=== PATIENT | male | born 1965 | race Caucasian/White ===

== ENCOUNTER 2016-07-28 05:48 | Inpatient (IN) | payer BC, OTHER ==
[2016-07-14 10:09] LABS: % IMMATURE GRANULYOCYTES 0.3 % (0.0-1.1); ABSOLUTE IMMATURE GRANULOCYTES 0.02 10^3/uL (0.00-0.10); ADD DIFF? NO; ADD MORPH? NO; ADD SCAN? NO; ATYPICAL LYMPHOCYTE FLAG 20 (0-99); FRAGMENT RBC FLAG 0 (0-99); HEMATOCRIT 45.5 % (40.0-51.0); HEMOGLOBIN 15.5 g/dL (13.7-17.5); LEFT SHIFT FLG 0 (0-99); LIPEMIA HEMOLYSIS FLAG 90 (0-99); MEAN CELL HEMOGLOBIN 32.6 pg (27.9-34.1); MEAN CELL HEMOGLOBIN CONCENTR. 34.1 g/dL (32.4-36.7); MEAN CELL VOLUME 95.6 fL (81.5-99.8); MEAN PLATELET VOLUME 10.1 fL (8.7-11.7); PLATELET CLUMPS FLAG 0 (0-99); PLATELET COUNT 208 10^3/uL (150-400); RED BLOOD CELL COUNT 4.76 10^6/uL (4.40-6.38)
--- NOTE | 2016-07-22 11:15 | GHP ---
[f rep st] PREOP HISTORY AND PHYSICAL DATE OF ADMISSION: 07/28/2016 PROBLEM: Left hip severe degenerative arthritis. HISTORY OF PRESENT ILLNESS: The patient is a 51-year-old male who will be admitted for a left hip re surfacing arthroplasty with Dr. Block at the [facility] on July 28, 2016. The p atalma first noticed pain in his left hip 2-3 years ago. He has had progressive pain over the past f ew years and has gotten progressively worse in the past few months. He does have daily pain, as well as nighttime pain. He is able to walk, however, skiing and other higher level activities have becom e more and more painful and limiting. He will occasionally use Aleve. He does have difficulty putti ng on shoes and socks on his left side. No previous left hip surgery or physical therapy or cortison e injections. He has seen other orthopedic surgeons, who have recommended some sort of surgical inte rvention and he has chosen hip resurfacing. PAST MEDICAL HISTORY: Noncontributory. No history of DVTs, PEs, heart attack, or MRSA infections. Migraines. CURRENT MEDICATIONS: None. ALLERGIES: He has a shellfish allergy which causes anaphylaxis. SOCIAL HISTORY: No history of tobacco use. Occasional alcohol use. Moderate caffeine intake. His activities include mountain biking, wakeboarding, hiking, and skiing. Occupation: Self-employed. FAMILY HISTORY: Pertinent for cancer, coronary artery disease, and hypertension. PHYSICAL EXAMINATION: GENERAL: He is a healthy-appearing 51-year-old male. VITAL SIGNS: Height 5 feet 9 inches tall. Weight 153 pounds. BMI 22.6. HEENT: Head is normocephalic, atraumatic. Eyes are PERRLA. Conjunctivae and sclerae are clear. Mouth: He has good oral hygiene without any loose teeth. LUNGS: Clear. HEART: Regular rate and rhythm without murmurs, gallops, or rubs. EXTREMITI ES: Pertinent findings are limited to the patient's left hip. He has full hip extension, 100 degree s of flexion with a 20 degree external rotation contracture, 0 degrees of internal rotation, and 30 d egrees of abduction. DIAGNOSTIC IMAGING: Recent x-rays taken of the patient's left hip shows severe degenerative arthriti s of the left hip with yeqj-jo-ovvs findings. He has peripheral osteophyte formation as well as incr eased subchondral sclerosis. His right hip has vfvz-di-mevfcikh cartilage space narrowing as well. IMPRESSION: On admission: 1. Left hip advanced degenerative arthritis. 2. History of migraines. PLAN: The plan will be for the patient to undergo a left hip resurfacing arthroplasty with Dr. Lucrecia parrish at the [facility] on July 28, 2016. The surgery has been described to the tenisha ent, including the risks, benefits, and expectations. He understands the risk of infection, sciatic nerve injury, hip dislocation, or need for future revision surgery. All of his questions have been a nswered and he consents to surgery here in the office today. /[id number]/MODL
[~2016-07-28 05:48] MED LIST: LIDOCAINE 1% 5 ML SDV ONE
[2016-07-28] MEDS ORDERED: DEXAMETHASONE 4 MG/ML VIAL IVP ONE (06:00)
[2016-07-28] MEDS ORDERED: CHLORHEXIDINE GLUC HIBICLENS 118 ML BTL TP ONE (06:00)
[2016-07-28] MEDS ORDERED: ROPI/epiNEPH/KETOROLAC JOINT COCKTAIL IU ONE (06:00)
[2016-07-28] MEDS ORDERED: TRANEXAMIC ACID 1,400 MG in NS 100 ML IV ONE (06:00)
[2016-07-28] MEDS ORDERED: FAMOTIDINE 20 MG TAB PO ONE (06:00)
[2016-07-28] MEDS ORDERED: POVIDONE-IODINE 20 ML in SODIUM CL IRRIG SOLUTION 500 ML IRR ONE (06:00)
[2016-07-28] MEDS ORDERED: ACETAMINOPHEN 325 MG TAB PO ONE (06:00)
[2016-07-28] MEDS ORDERED: CEFAZOLIN 2 GM/DEXTR 100 ML IV ONE (06:00)
[2016-07-28] MEDS ORDERED: LIDOCAINE 1% 5 ML SDV ID PRN (06:10)
[2016-07-28] MEDS ORDERED: LR 1,000 ML IV ONE (06:10)
[2016-07-28] MEDS ORDERED: SKIN ADHESIVE (DERMABOND) 1 EACH TP ONE (06:36)
[2016-07-28] MEDS ORDERED: ceFAZolin 1 GM/5 ML SYR ONE (06:36)
[2016-07-28] MEDS ORDERED: MIDAZOLAM 2 MG/2 ML VIAL ONE (06:58)
[2016-07-28] MEDS ORDERED: fentaNYL 100 MCG/2 ML INJ ONE (07:13)
[2016-07-28] MEDS ORDERED: PROPOFOL/EMULSION 500 MG/50 ML BOTTLE IV ONE ×2 (07:14→08:39)
[2016-07-28] MEDS ORDERED: LIDOCAINE 2% 5 ML SDV ONE ×2 (07:25)
[2016-07-28] MEDS ORDERED: PHENYLEPHRINE HCL 100 MCG/ML SYR ONE (07:42)
--- NOTE | 2016-07-28 09:06 | POSTOPPROG ---
Post Op Note Date of Operation: 07/28/16 Surgeon: Robert Block Radio Dispatcher: Adali/Sony Anesthesiologist: Selin Anesthesia: IV Sedation, Spinal Post-op Diagnosis: left hip arthritis Procedure: L BHR Inf/Abcess present in the surg proc area at time of surgery?: No EBL: [id number]
[2016-07-28] MEDS ORDERED: DIPHENOXYLATE/ATROPINE LOMOTIL 1 TAB PO PRN (09:18)
[2016-07-28] MEDS ORDERED: ONDANSETRON 4 MG/2 ML VIAL IVP PRN (09:18)
[2016-07-28] MEDS ORDERED: PHARMACY PAIN CONSULT 1 EA MISC PRN (09:18)
[2016-07-28] MEDS ORDERED: TEMAZEPAM 15 MG CAP PO PRN (09:18)
[2016-07-28] MEDS ORDERED: METOCLOPRAMIDE 10 MG/2 ML VIAL IVP PRN (09:18)
[2016-07-28] MEDS ORDERED: CYCLOBENZAPRINE 10 MG TAB PO PRN (09:18)
[2016-07-28] MEDS ORDERED: KETOROLAC 30 MG/1 ML SDV IVP PRN (09:18)
[2016-07-28] MEDS ORDERED: NS 500 ML IV PRN (09:18)
[2016-07-28] MEDS ORDERED: traMADol 50 MG TAB PO PRN (09:18)
[2016-07-28] MEDS ORDERED: MAGNESIUM HYDROXIDE 30 ML UDCUP PO PRN (09:18)
[2016-07-28] MEDS ORDERED: POLYETHYLENE GLYCOL 3350 17 GM PKT PO PRN (09:18)
[2016-07-28] MEDS ORDERED: LACTULOSE 20 GM/30 ML UDCUP PO PRN (09:18)
[2016-07-28] MEDS ORDERED: PROMETHAZINE HCL 25 MG SUPPR PR PRN (09:18)
[2016-07-28] MEDS ORDERED: ONDANSETRON DISINTEGRATING 4 MG TAB PO PRN (09:18)
[2016-07-28] MEDS ORDERED: PROMETHAZINE HCL 25 MG/ML INJ IVP PRN (09:18)
[2016-07-28] MEDS ORDERED: diphenhydrAMINE 25 MG CAP PO PRN (09:18)
[2016-07-28] MEDS ORDERED: BISACODYL 10 MG SUPP PR PRN (09:18)
[2016-07-28] MEDS ORDERED: LR 1,000 ML IV SCH (09:30)
--- NOTE | 2016-07-28 12:13 | GOP ---
[f rep st] OPERATIVE REPORT DATE OF OPERATION: 07/28/2016 SURGEON: Robert Block MD ACCOUNTING ADVISORY SERVICES MANAGER: Roosevelt Bro and Vinod Cardoza. ANESTHESIA: A combination of Marcaine, spinal and IV sedation. ANESTHESIOLOGIST: Dr. Shad Smallwood. PREOPERATIVE DIAGNOSIS: Left hip severe degenerative arthritis. POSTOPERATIVE DIAGNOSIS: Left hip severe degenerative arthritis. PROCEDURE PERFORMED: Left hip Janet hip resurfacing arthroplasty. FINDINGS: DESCRIPTION OF PROCEDURE: The patient was given 2 g of preoperative IV Ancef within 60 minutes of s urgery. He also received IV tranexamic acid at a dose of 20 mg/kg. He was placed on the operating room table and given spinal anesthesia with Marcaine by Dr. Smallwood. He was then placed supine and given IV sedation. A Broderick catheter was not used. He wore a compressive stocking and SCD on th e nonoperative leg. He was rolled to the right lateral decubitus position. An axillary roll was us ed and all pressure points were carefully padded. The position was secured with the pegboard table attachment. I was careful to lock his pelvis in a rigid vertical position. His perineum was isolat ed with plastic adhesive drapes. His left hip and left lower extremity were prepped with ChloraPrep . They were draped free using sterile sheets, stockinette, and Ioban plastic adhesive drape. The [employer] time-out was performed to verify the correct patient identity and the correct surgical side. The [place] time-out was also performed. I made a 6-inch straight oblique posterolateral hip skin incision. Subcutaneous tissues were sharpl y divided and hemostasis was obtained using electrocautery. The fascia gloria was identified and spli t along the axis of its fibers. I curved posteriorly and proximally, and split the fascia of the gl uteus mark and bluntly split the muscle fibers in line with their orientation. His sciatic nerve was identified and protected throughout the procedure. The Charnley self-retaining retractor was i nserted. The external rotators and the posterior hip capsule were divided as separate layers at the base of the femoral neck, tagged and reflected posteriorly. The gluteus mark tendon was divided and tagged in order to improve exposure and release tension on the sciatic nerve. The hip was disl ocated posteriorly. I used a sizing gauge to check the diameter of the neck and concluded that 50 m m was the proper head size. I performed a circumferential capsulotomy. I was able to retract the f emoral head anteriorly and superiorly and hold it out of place with appropriate retractors. The rem nant of his damaged labrum was completely excised. The acetabulum was reamed sequentially up to 56 mm. I selected the Vilas monoblock porous-coated acetabular component with an outside diameter of 56 mm. This was firmly impacted and was a very tight fit. I was careful to determine proper in clination and anteversion. I used the transverse acetabular ligament and other acetabular bony land kohler to help me properly orient the cup. Posterior inferior osteophytes were removed with an osteo tome and rongeur. I was careful to leave a good lip of bone and capsule extending beyond the anteri or-inferior lip of the metal cup. I then returned to preparation of the femoral head. Using appropriate jigs and guides, I inserted a guide pin into the femoral head and neck. I was careful to position in such a way that there would be no notching of the neck. The patient had significant posterior translation of his femoral head. I positioned the guidewire so that I was centering the femoral head component on the femoral neck. This translated the head anteriorly and reestablished a normal head neck offset. He had some soft anterior neck osteophytes which were removed with a rongeur. I used a sterile metal goniometer to check the neck shaft angle. I reamed over the guide pin and inserted the reaming guide. I then use d the cylindrical reamer down to the head and neck junction. This was followed by the flat reamer a nd the chamfer reamer. The head was sized for 50 mm. There was no impingement or damage to the nec k. I drilled a small hole in the lesser trochanter and inserted a suction cannula to create negativ e pressure in the medullary canal. Small holes were drilled on the flattened chamfer surfaces of th e prepared head for cement anchors. The head was thoroughly cleaned with the pulsating lavage and c arefully dried. I used a CarboJet device to blow dry the cancellous surfaces. A single batch of Si mplex cement with tobramycin was mixed. At about 50 seconds, I poured the liquid cement into the ad component, inserted it onto the femoral head and impacted it into place. Excess cement was remov ed before it hardened. The acetabulum was irrigated, cleaned, and inspected, and the hip was reduce d. Stability and range of motion were checked. I placed my finger along the anterior aspect of the acetabular component and flexed the hip to 110 degrees. There was no anterior impingement. The hook ction cannula and lesser trochanter were removed. The wound was thoroughly irrigated with a dilute Betadine solution. 40 mL of the joint anesthetic cocktail were injected into the capsule, the deep musculature and the subcutaneous tissues along the skin edges. His sciatic nerve was reinspected and looked unharmed. The external rotators and the posterior hip capsule were repaired in separate layers with #2 FiberWire sutures through drill holes in the greate r trochanter. This provided a strong posterior capsular and external rotator repair. The gluteus m aximus tendon was repaired with 2 interrupted [id number]-gw-dvlby #2 FiberWire sutures. The fascia gloria was repaired 1st with 2 interrupted [id number]-do-[id number] #2 FiberWire sutures, followed by a running #2 barbed Ethicon fat affix PDO suture. The subcutaneous tissues were closed with a running 0 barbed E thicon Stratafix Monoderm suture. The skin was closed with a running 3-0 barbed Ethicon Stratafix M onoderm subcuticular suture. The skin edges were reapproximated and sealed with Dermabond glue. Th e wound was covered with a strip of Telfa, and everything was held in place with a piece of clear pl astic Tegaderm. The estimated blood loss was about 400 mL. I used a [employer] Janet hip resurfacing system. The acetabular component was 56 mm in diameter and press-fit. The femoral head was 50 mm and cemented. He was awakened from anesthesia a nd rolled to the supine position on his [place] [employer]. A long-leg compressive stocking and SCD we re applied to the operative leg. The patient wore a stocking and an SCD on the opposite leg during the procedure. An abduction pillow was placed under his knees. He was taken to PACU in satisfactor y condition. There were no recognized intraoperative complications. The sponge and needle count were correct on 2 occasions. Roosevelt Bro and Vinod Cardoza acted as surgical assistants. Their assistance was a medical casandra quezada. /[id number]/MODL
[2016-07-28] MEDS: TRANEXAMIC ACID 650 MG TAB PO SCH ×3 (12:41→21:04)
[2016-07-28] MEDS: ACETAMINOPHEN 325 MG TAB PO SCH ×3 (12:42→22:48)
[2016-07-28] MEDS: ceFAZolin 2 GM in D5W 100 ML IV SCH ×2 (13:54→21:04)
[2016-07-28] MEDS ORDERED: ceFAZolin 2 GM/DEXTROSE 100 ML IV SCH (14:00)
[2016-07-28] MEDS: oxyCODONE IR 5 MG TAB PO PRN ×2 (17:46→22:47)
[2016-07-28] MEDS: FAMOTIDINE 20 MG TAB PO SCH (21:05)
[2016-07-28] MEDS: SENNOSIDES/DOCUSATE SODIUM TAB PO SCH (21:05)
[2016-07-28] MEDS: ASPIRIN 325 MG TAB PO SCH (21:11)
[2016-07-28 23:55] VITALS: RESP 16
[2016-07-29] MEDS: ACETAMINOPHEN 325 MG TAB PO SCH (05:04)
[2016-07-29] MEDS: oxyCODONE IR 5 MG TAB PO PRN (05:06)
[2016-07-29 05:46] LABS: HEMOGLOBIN 12.8 g/dL (13.7-17.5)
--- NOTE | 2016-07-29 07:21 | SOAPPROG ---
SOAP Progress Note Assessment/Plan: Assessment: Afebrile. Mild pain. Up and walking. H/H is good. Sciatic nerve intact. Films look good. Dsg is dry. Plan: PT today. DC later today. 07/29/16 07:19 Objective: Vital Signs Temp Pulse Resp BP Pulse Ox 36.9 C 65 16 100/64 94 07/29/16 05:10 07/29/16 05:10 07/29/16 05:10 07/29/16 05:10 07/29/16 05:10 Laboratory Results 07/29/16 05:20 07/28/16 07/29/16 07/30/16 05:59 05:59 05:59 Intake Total 2830 Output Total 2650 Balance 180 ICD10 Worksheet Patient Problems: Problems Problem Status Onset Osteoarthritis of left hip Acute
[2016-07-29] MEDS: SENNOSIDES/DOCUSATE SODIUM TAB PO SCH (07:54)
[2016-07-29 07:55] VITALS: BP 102/69; PULSE 75; TEMP 98.3; O2SAT 93
[2016-07-29] MEDS: TRANEXAMIC ACID 650 MG TAB PO SCH (07:55)
[2016-07-29] MEDS: ASPIRIN 325 MG TAB PO SCH (07:56)
[2016-07-29] MEDS: FAMOTIDINE 20 MG TAB PO SCH (07:58)
[2016-07-29] MEDS ORDERED: Herbals/Supplements -Info Only PO SCH (09:00)
[2016-07-29] MEDS ORDERED: CHOLECALCIFEROL VIT D3 1,000 UNITS TAB PO SCH (09:00)
[2016-07-29] MEDS ORDERED: OMEGA-3 FATTY ACIDS 1,000 MG CAP PO SCH (09:00)
[2016-07-29] MEDS ORDERED: MULTIVITAMINS 1 EACH TAB PO SCH (09:00)
[2016-07-29] MEDS ORDERED: FERROUS SULFATE 140 MG TAB.ER PO SCH (09:00)
--- NOTE | 2016-07-29 12:46 | GDS ---
[f rep st] DISCHARGE SUMMARY ADMISSION DIAGNOSIS: Left hip severe degenerative arthritis. DISCHARGE DIAGNOSIS: Left hip severe degenerative arthritis. OPERATION PERFORMED: 07/28/2016: A left hip [place] hip resurfacing arthroplasty. POSTOPERATIVE COMPLICATIONS: None. CONDITION ON DISCHARGE: Improved. DESCRIPTION OF HOSPITAL COURSE: The patient was admitted to the hospital the morning of surgery. H is admission CBC was normal. The same day, under a combination of Marcaine spinal anesthesia and IV sedation, he underwent a left hip Janet hip resurfacing arthroplasty. Postoperatively, he was treated with multimodal DVT prophylaxis, including aspirin. On the first postoperative day, his he moglobin and hematocrit were 12.8 and 38.0. He did not require any transfused blood. He was seen b y Physical Therapy and made good progress with ambulation and stairs. By the time of discharge, he was afebrile, his wound was clean and dry, and he was independent walking with crutches. DISPOSITION: The patient is discharged to his home. He will go to outpatient physical therapy. Us e an abduction pillow in bed for 3 weeks. He may progress to full weightbearing as tolerated. Cont inue aspirin 325 mg p.o. daily for 21 days. He has prescriptions for oxycodone and tramadol for nicko n control. I will see him back in the office on August 13, 2016. If there any problems, he is to barry ambrocio at the office. /[id number]/MODL
== END 2016-07-29 10:24 | disposition home or self-care (01) | DRG 470 ==
LOC: F3N 05:48
PROVIDERS: ADMIT Orthopaedic Surgery; ATTEND Orthopaedic Surgery
PROC: 0SUB0BZ Supplement Left Hip Joint with Resurfacing Device, Open Approach (ICD-10-PCS; principal; 2016-07-28 07:15)
DX: M16.12 Unilateral primary osteoarthritis, left hip (principal)
CPT/HCPCS: 97116-GP; 97161-GP; 97165-GO; C1713; C1769; J0171; J0690; J1100; J1885; J2250; J2370; J2704; J2795; J3010